=== PATIENT | male | born 1975 | race African-American/Black ===

== ENCOUNTER 2025-01-13 08:18 | Emergency (ER) | payer OTHER ==
[~2025-01-13] VITALS: Ht 180.3 cm; Wt 104.5 kg
[2025-01-13 08:25] VITALS: TEMP 99
[2025-01-13 09:25] LABS: COVID AG,FIA SOURCE NASAL SWAB
[2025-01-13 09:27] LABS: CALCIUM, TOTAL 9.1 mg/dL (8.8-10.5); CREATININE 1.35 mg/dL (0.60-1.30); GLOMERULAR FILTR. RATE CALC > 60 mL/min (>60); GLUCOSE,RANDOM 106 mg/dL (70-110); SODIUM SERUM 140 mmol/L (136-145); UREA NITROGEN, BLOOD 9 mg/dL (7-18)
[2025-01-13 09:29] LABS: PLATELET COUNT (AUTO) 553 K/uL (150-450); RED BLOOD CELL COUNT(AUTO) 4.54 MIL/uL (4.50-5.90); RED CELL DISTRIBUTION WIDTH 20.5 % (11.5-14.5); WHITE BLOOD COUNT (AUTO) 7.4 K/uL (4.5-11.0)
[2025-01-13 09:32] LABS: ASPARTATE AMINOTRANSFERASE 22 U/L (15-37); TOTAL PROTEIN, SERUM 7.9 g/dL (6.4-8.2)
[2025-01-13 09:33] LABS: APPEARANCE,URINE CLEAR (CLEAR); GLUCOSE, URINE (UA) NEGATIVE (NEGATIVE); LEUKOCYTE ESTERASE ,URINE NEGATIVE (NEGATIVE); NITRATE,URINE NEGATIVE (NEGATIVE); OCCULT BLOOD,URINE NEGATIVE (NEGATIVE); SPECIFIC GRAVITIY, URINE 1.029 (1.003-1.030)
[2025-01-13 09:49] LABS: SARS-COV2 (COVID) ANTIGEN,FIA Negative (Negative)
[2025-01-13 10:00] VITALS: BP 140/74; PULSE 95; RESP 18; O2SAT 99
[2025-01-13 10:04] LABS: RBC MORPHOLOGY COMMENT ABNORMAL RBC MORPH
[2025-01-13] MEDS ORDERED: PERCT PO (10:26)
[2025-01-13] MEDS ORDERED: ONDA-104 PO (10:26)
== END 2025-01-13 10:48 | disposition home or self-care (01) ==
LOC: EMS 08:18
DX: R11.0 Nausea (principal); Z85.038 Personal history of other malignant neoplasm of large intestine; Z93.3 Colostomy status; Z20.822 Contact with and (suspected) exposure to COVID-19
CPT/HCPCS: 80053; 81003; 85025; 99283